=== PATIENT | male | born 1985 | race Caucasian/White ===

== ENCOUNTER 2018-09-04 10:47 | Emergency (ER) | payer OTHER ==
[~2018-09-04 10:47] MED LIST: Iopamidol 370 76% 100 ML VIAL ONE
[2018-09-04 11:11] LABS: #Basophils 0.1 thou/uL (0.0-0.2); #Eosinphils 0.1 thou/uL (0.0-0.7); #Monocytes 0.5 thou/uL (0.11-0.59); #Neutrophils 7.8 thou/uL (1.40-6.50); %Basophils 0.8 % (0.0-1.0); %Eosinophils 0.5 % (0.0-10.0); %Lymphocytes 19.4 % (21.0-51.0); %Monocytes 5.1 % (0.0-10.0); %Neutrophils 74.3 % (42.0-75.0); Hemoglobin 16.6 g/dL (14.0-18.0); Mean Corpuscular HGB CONC 32.1 g/dL (32.0-36.0); Mean Platelet Volume 9.1 fL (7.4-10.4); Platelet Count 213 thou/uL (130-400); RBC Distribution Width 12.4 % (11.5-14.5); Red Blood Cell (RBC) Count 6.16 mill/uL (4.70-6.10); White Blood Cell (WBC) Count 10.5 thou/uL (4.8-10.8)
[2018-09-04] MEDS ORDERED: Sodium Chloride 0.9% 1,000 ML ONE (11:23)
[2018-09-04 11:30] LABS: ALT (SGPT) 32 U/L (8-55); AST (SGOT) 22 U/L (5-34); Albumin 4.5 g/dL (3.5-5.0); Alkaline Phosphatase 72 U/L (40-150); Anion Gap 14 mmol/L (10-20); BUN (Urea Nitrogen) 14 mg/dL (8.9-20.6); Bilirubin, Total 0.5 mg/dL (0.2-1.2); Calc. Creatinine Clearance 0 mL/min (70-130); Calcium 9.5 mg/dL (7.8-10.44); Carbon Dioxide 24 mmol/L (22-29); Chloride 108 mmol/L (98-107); Estimated GFR-MDRD 88; Globulin 2.9 g/dL (2.4-3.5); Glucose 116 mg/dL (70-105); Potassium 4.1 mmol/L (3.5-5.1); Protein, Total 7.4 g/dL (6.0-8.3); Sodium 142 mmol/L (136-145)
[2018-09-04 11:33] LABS: CKMB 0.8 ng/mL (0-6.6); Troponin I Less than 0.010 ng/mL (< 0.028)
--- NOTE | 2018-09-04 14:00 | CT ---
CT PULMONARY ANGIOGRAM WITH IV CONTRAST AND 3D POSTPROCESSING: HISTORY: Chest pain. Elevated D-dimer. FINDINGS: No filling defects are seen in the pulmonary arterial vasculature to suggest pulmonary embolism. The thoracic aorta is opacified without aneurysm or dissection. A tiny left pleural effusion is seen. No right pleural effusion or pericardial effusions are seen. No pneumothoraces, focal areas of conso lidation, lung masses, or nodules are identified. IMPRESSION: No Ct evidence of pulmonary embolism. POS: IDANIA
== END 2018-09-04 13:00 | disposition home or self-care (01) ==
LOC: NAV ERS 10:47
DX: R07.89 Other chest pain (principal)
CPT/HCPCS: 71275; 80053; 82553; 84484; 85025; 85379; 93005; 94760; 96360; J7050

== ENCOUNTER 2019-12-12 18:37 | Emergency (ER) | payer OTHER, SELFPAY ==
[2019-12-12] MEDS ORDERED: predniSONE 20 MG TAB ONE (18:55)
--- NOTE | 2019-12-12 19:17 | RAD ---
EXAM: Chest Two Views 12/12/2019 7:14 PM HISTORY: Cough COMPARISON: None. FINDINGS: Lungs: No acute airspace consolidation. Heart: Normal in size and contour. Pulmonary vessels: Normal. Costophrenic angles: Clear. Pneumothorax: None. Osseous structures:Intact. Additional findings: None. IMPRESSION: No significant acute intrathoracic disease.
== END 2019-12-12 19:57 | disposition home or self-care (01) ==
LOC: NAV ERS 18:37
DX: J20.9 Acute bronchitis, unspecified (principal)
CPT/HCPCS: 71046; 87804; J7512; J7620

== ENCOUNTER 2020-10-09 14:05 | Emergency (ER) | payer SELFPAY ==
[2020-10-09] MEDS ORDERED: Morphine 4 MG/ML VIAL ONE (14:18)
[2020-10-09] MEDS ORDERED: Ondansetron PF 4 MG/2 ML Vial ONE (14:18)
[2020-10-09] MEDS ORDERED: Fentanyl 100 MCG/2 ML VIAL ONE (14:33)
[2020-10-09] MEDS ORDERED: Sodium Chloride 0.9% 100 ML ONE (14:35)
[2020-10-09] MEDS ORDERED: Promethazine HCl 25 MG/ML VIAL ONE (14:35)
[2020-10-09 14:38] LABS: #Basophils 0.1 thou/uL (0.0-0.2); #Eosinphils 0.1 thou/uL (0.0-0.7); #Lymphocytes 3.1 thou/uL (1.20-3.40); #Monocytes 0.8 thou/uL (0.11-0.59); #Neutrophils 6.9 thou/uL (1.40-6.50); %Eosinophils 0.9 % (0.0-10.0); %Lymphocytes 27.9 % (21.0-51.0); %Monocytes 7.6 % (0.0-10.0); %Neutrophils 62.7 % (42.0-75.0); Hemoglobin 17.4 g/dL (14.0-18.0); Mean Corpuscular HGB CONC 33.6 g/dL (32.0-36.0); Mean Corpuscular Hemoglobin 28.3 pg (27.0-31.0); Mean Corpuscular Volume 84.4 fL (78.0-98.0); Mean Platelet Volume 9.1 fL (7.4-10.4); Platelet Count 238 thou/uL (130-400); RBC Distribution Width 12.4 % (11.5-14.5); Red Blood Cell (RBC) Count 6.15 mill/uL (4.70-6.10)
[2020-10-09 14:48] LABS: ALT (SGPT) 50 U/L (8-55); AST (SGOT) 32 U/L (5-34); Albumin 4.7 g/dL (3.5-5.0); Alkaline Phosphatase 73 U/L (40-110); Anion Gap 16 mmol/L (10-20); BUN (Urea Nitrogen) 19 mg/dL (8.9-20.6); Bilirubin, Total 0.4 mg/dL (0.2-1.2); Calc. Creatinine Clearance 0 mL/min (70-130); Calcium 8.9 mg/dL (7.8-10.44); Carbon Dioxide 22 mmol/L (22-29); Chloride 107 mmol/L (98-107); Globulin 2.8 g/dL (2.4-3.5); Glucose 93 mg/dL (70-105); Lipase 133 U/L (8-78); Potassium 4.2 mmol/L (3.5-5.1); Protein, Total 7.5 g/dL (6.0-8.3); Sodium 141 mmol/L (136-145)
--- NOTE | 2020-10-09 15:07 | RAD ---
PORTABLE CHEST: Date; 10/09/2020 HISTORY: Epigastric pain. FINDINGS: Heart size and mediastinum are within normal limits. The lungs are clear of any infiltrates. No bony findings. IMPRESSION: No active intrathoracic disease. POS: EDWARDO
--- NOTE | 2020-10-09 15:54 | CT ---
CT ABDOMEN AND PELVIS PERFORMED WITHOUT CONTRAST ENHANCEMENT: Date: 10/09/2020 HISTORY: Abdominal pain. FINDINGS: Lung bases are clear. The liver shows no focal abnormalities. The spleen is borderline size, measuring 12.8 cm in length. S plenule is noted. Pancreas shows no mass or ductal dilatation. Gallbladder has been removed. Right and left adrenal glands, and right and left kidneys are normal. There is no significant periaor tic or mesenteric adenopathy. Postoperative changes of the stomach. CT of pelvis was performed with contrast enhancement. No adenopathy, mass, or free fluid. Appendix is normal. Review of osseous structures shows no concerning lytic or blastic bony changes. IMPRESSION: No acute findings of the abdomen or pelvis. POS: Reji
[2020-10-09 16:05] LABS: Bilirubin Negative (Negative); Blood, Urine Negative (Negative); Glucose, Urine (Dipstick) Negative (Negative); Ketone, Urine Negative (Negative); Leukocyte Negative (Negative); Nitrite Negative (Negative); Protein, Urine (Dipstick) Negative (Neg-Trace); Specific Gravity, Urine 1.025 (1.005-1.030); pH, Urine 5.5 (5.0-9.0)
[2020-10-09 16:12] LABS: Clarity SL HAZY (Clear)
== END 2020-10-09 18:10 | disposition home or self-care (01) ==
LOC: NAV ERS 14:05
DX: R10.13 Epigastric pain (principal)
CPT/HCPCS: 71045; 74177; 80053; 81003; 83690; 84484; 85025; 93005; 96365; 96375; J2270; J2405; J2550; J3010; Q9967